=== PATIENT | male | born 1940 | race Caucasian/White ===

== ENCOUNTER 2017-04-21 19:11 | Observation (INO) | payer MEDICARE ==
[2017-04-21] MEDS ORDERED: Nitroglycerin 0.4 MG TAB (25 Tab Bottle) ONE (19:40)
[2017-04-21] MEDS ORDERED: Fentanyl 100 MCG/2 ML VIAL ONE (20:36)
[2017-04-21] MEDS ORDERED: Ondansetron HCl/PF 4 MG/2 ML Vial ONE (20:57)
[2017-04-21] MEDS ORDERED: Succinylcholine Chloride 20 MG/ML 10 ml SYRINGE FS ONE (20:57)
[2017-04-21] MEDS ORDERED: Lidocaine 2% PF 10 ML AMP (For Epidural Use) ONE (20:57)
[2017-04-21] MEDS ORDERED: Propofol 200 MG/20 ML VIAL ONE (20:57)
[2017-04-21] MEDS ORDERED: Ondansetron HCl/PF 4 MG/2 ML Vial IVP PRN (21:58)
[2017-04-21 23:14] VITALS: BMI 34.1
[2017-04-21] MEDS ORDERED: Dextrose 50% Abboject 50 ML SYRINGE IVP PRN (23:14)
[2017-04-21] MEDS ORDERED: Dextrose 5% in Water 1,000 ML IV PRN (23:14)
[2017-04-21] MEDS ORDERED: Insulin Regular 300 UNITS/3 ML VIAL SC PRN (23:14)
--- NOTE | 2017-04-22 01:42 | CON ---
DATE OF CONSULTATION: 04/21/2017 REQUESTING PHYSICIAN: Dr. Zabala. REASON FOR CONSULTATION: Esophageal food impaction. HISTORY OF PRESENT ILLNESS: Curtis Soriano is a 77-year-old man well known to me. He has a prior histo ry of colon cancer, status post resection as well as diabetes. He also has a long distal esophageal stricture and has presented multiple times to the hospital with foreign body impactions over the pa st few years and months. He presented in 07/2014, then again on 03/2016, then again in 01/2017. Ea ch time he has had to have esophageal food disimpaction as well as esophageal dilation. I followed him up in the outpatient setting on 02/15/2017 and dilated his esophageal stricture to 15 mm at that time. We repeated EGDs in 03/2017 and dilated his distal stricture up to 16.5 mm at that time with quite extensive disruption of scar tissue in the esophagus. I had planned to repeat the upper endo scopy to 3-week intervals, but the patient missed this because he underwent a right knee replacement . He has continued his PPI twice daily since that time. He generally tries to chew his food really well. However, for the past few days swallowing has been getting a lot tougher, he felt as if a pi ll lodged in his esophagus this morning. Then, this afternoon about 4 hours ago, he was eating pizz a with pepperoni and sausage and felt as if it lodged in the lower esophagus. He has been unable to swallow his secretions since that time and he has been regurgitating mucus, unable to tolerate any p.o. intake. He has no other complaints. PAST MEDICAL HISTORY: Colon cancer status post resection, diabetes, hyperlipidemia, esophageal stri cture with multiple prior esophageal foreign body presentations, requiring urgent EGDs, and dilation . ALLERGIES: ZITHROMAX. CURRENT MEDICATIONS: Protonix 40 mg b.i.d., pravastatin, glyburide, and metformin. SOCIAL HISTORY: No smoking. Alcohol use is occasional. FAMILY HISTORY: Negative for GI malignancy, but his mother had pancreatic cancer. Grandfather had lung cancer. PHYSICAL EXAMINATION: VITAL SIGNS: Temperature 98.0, pulse 92, blood pressure 124/67, 95% oxygen saturation on room air. GENERAL: Obese 77-year-old man sitting up in the bed comfortably in no distress. SKIN: No jaundice, no rashes were palpable. EYES: No scleral icterus. Extraocular movements intact. ENT: Mucous membranes moist, no oral lesions. LYMPH: No submandibular, supraclavicular lymphadenopathy. THYROID: Nontender to palpation. HEART: Regular rate and rhythm. LUNGS: Clear to auscultation bilaterally. ABDOMEN: Soft and nontender to palpation. EXTREMITIES: No peripheral edema. VESSELS: Radial pulses 2+ bilaterally. NEUROLOGICAL: Cranial nerves II-XII intact bilaterally. No focal deficits. LABORATORY STUDIES: None. ASSESSMENT AND PLAN: 1. Esophageal foreign body, food bolus impaction. 2. Distal esophageal stricture. We will proceed with urgent EGD this evening for food bolus extrac tion and possible esophageal dilation depending on findings. He will need to continue to chew his f ood thoroughly, will likely need serial esophageal dilations in the outpatient setting, get back on track with this. I anticipate he will be able to be discharged home this evening following the proc edure.
--- NOTE | 2017-04-22 03:34 | OP ---
DATE OF PROCEDURE: 04/21/2017 SURGEON: Michele Dave M.D. MANAGER MARKET SURGEON: None. PROCEDURE PERFORMED: Esophagogastroduodenoscopy with foreign body removal and esophageal dilation. INDICATION: 1. Esophageal food bolus impaction. 2. Esophageal stricture. MEDICATIONS: See anesthesia record. FINDINGS: After discussion of the risks, benefits and alternatives of the procedure, informed conse nt was obtained and witnessed. Pre-endoscopic cardiopulmonary examination was satisfactory. Timeou t was performed before sedation was achieved. Sedation was achieved with anesthesia assistance in [facility] endoscopy unit. The patient was endotracheally intubated for airway protection. A Pentax adult upper endoscope was placed into the oropharynx and passed through the cricopharyngeus under direct v isualization. The proximal esophageal mucosa appeared normal. At 30 cm from the incisors, there wa s a single large chunk of meat. This was not tightly impacted at the top of his distal esophageal s tricture, but rather was bouncing around in the esophagus, it was unable to pass beyond his tight st ricture. I was able to completely remove the food bolus with suction through the endoscope. At thi s point, the endoscope was reinserted into the esophagus for further examination. The patient's kno wn distal esophageal stricture is still present. It measures from 30-35 cm in the distal esophagus. The endoscope was actually able to traverse the stricture though this was very tight and examine t he stomach at first part of the small intestine, which again appeared normal. At this point, it was decided to proceed with esophageal dilation as there was very little acute maceration of the esopha george from the patient's food bolus. So we used, through the scope, balloon dilator to serially dilat e the esophagus to 15 mm and then to 16.5 mm. Upon reexamination of the distal esophagus after dila tion, there was good mucosal disruption with moderate improvement in luminal narrowing. The upper e ndoscope was then completely withdrawn and the patient allowed to recover. The patient tolerated e procedure well. There were no immediate post-procedure complications. IMPRESSION: 1. Meat impaction at 30 cm, now removed. 2. Tight distal esophageal stricture from 30-35 cm, now status post serial dilation to 15 cm then 1 6.5 cm, with good mucosal disruption and moderate improvement in luminal narrowing. 3. Otherwise, normal esophagogastroduodenoscopy. RECOMMENDATIONS: 1. Chew food thoroughly. 2. Protonix 40 mg twice daily. 3. We will plan to repeat EGD with dilation in 2-3 weeks.
[2017-04-22 04:35] LABS: #Eosinphils 0.4 thou/uL (0.0-0.7); #Lymphocytes 2.5 thou/uL (1.20-3.40); #Monocytes 0.7 thou/uL (0.11-0.59); #Neutrophils 4.3 thou/uL (1.40-6.50); %Basophils 0.5 % (0.0-1.0); %Eosinophils 4.5 % (0.0-10.0); %Lymphocytes 31.5 % (21.0-51.0); %Monocytes 8.8 % (0.0-10.0); Hematocrit 39.9 % (42.0-52.0); Mean Platelet Volume 6.6 fL (7.4-10.4); Red Blood Cell (RBC) Count 4.27 mill/uL (4.70-6.10); White Blood Cell (WBC) Count 7.9 thou/uL (4.8-10.8)
[2017-04-22 04:48] LABS: ALT (SGPT) 13 U/L (8-55); AST (SGOT) 12 U/L (5-34); Alkaline Phosphatase 85 U/L (40-150); Anion Gap 10 mmol/L (10-20); BUN (Urea Nitrogen) 10 mg/dL (8.4-25.7); Bilirubin, Total 0.4 mg/dL (0.2-1.2); CK (CPK) 166 U/L (30-200); Calc. Creatinine Clearance 136 mL/min (70-130); Calcium 8.7 mg/dL (7.8-10.44); Carbon Dioxide 28 mmol/L (23-31); Chloride 102 mmol/L (98-107); Estimated GFR-MDRD Greater than 90; Globulin 3.1 g/dL (2.4-3.5); Protein, Total 6.3 g/dL (5.8-8.1)
[2017-04-22 04:51] LABS: Troponin I 0.034 ng/mL (< 0.028)
--- NOTE | 2017-04-22 10:40 | HP ---
DATE OF ADMISSION: 04/21/2017 PRIMARY CARE PHYSICIAN: Dr. Benja Velázquez. CHIEF COMPLAINT: New onset atrial fibrillation, status post EGD with dilation. HISTORY OF PRESENT ILLNESS: This is a 77-year-old male with past medical history of chron ic esophageal strictures and multiple dilations, type 2 diabetes, osteoarthritis of both knees, mixe d hyperlipidemia, who was getting a procedure here at [facility] with Dr. Michele Dave to add ress an impaction in the esophagus. This was apparently chronic for him and was having EGD with dil ation of the esophagus. The procedure went well; however, after the procedure, his heart rate went to 110 to 140s and an EKG showed atrial fibrillation. As far as the patient knows, this is the firs t time he has had abnormal rhythm like this. His heart rate has been maintained below 110. He is c urrently not on a beta gian. He does take aspirin. ALLERGIES: AZITHROMYCIN. MEDICATIONS: 1. Metformin 500 mg 2 tabs p.o. b.i.d. 2. Tamsulosin 0.4 mg p.o. daily. 3. Pravastatin 40 mg p.o. daily. 4. Aspirin 81 mg p.o. daily. 5. Glipizide 10 mg p.o. b.i.d. PAST MEDICAL HISTORY: As above. PAST SURGICAL HISTORY: 1. Recent right total knee replacement. 2. Right-sided colectomy. 3. Hernia repair. 4. Appendectomy. SOCIAL HISTORY: The patient is a former smoker. Denies alcohol and illicit drugs. REVIEW OF SYSTEMS: General: Denies fever, weight change, appetite change. HEENT: Denies headache , vision changes, sore throat. Reports dysphagia is better, status post esophageal dilation. Skin: He does have some erythema along the right leg from the knee down, status post right knee replacem ent. Cardiovascular: Denies chest pain or palpitations. Respiratory: Denies shortness of breath or cough. Gastrointestinal: Denies nausea, vomiting, diarrhea, abdominal pain. Genitourinary: De nies dysuria or hematuria. Musculoskeletal: Normal range of motion except for right knee, mild rig ht knee swelling. Neurologic: Denies syncope and dizziness. PHYSICAL EXAMINATION: VITAL SIGNS: Temperature 98.1, pulse 66, respirations 16, oxygen saturation 97% on room air, blood pressure 155/70. GENERAL: Alert and oriented x3, in no acute distress. SKIN: Mild erythema of the right leg from the knee down. HEENT: Normocephalic. Pupils equally round and reactive to light. Extraocular muscles intact. M oist mucous membranes with nonerythematous throat. HEART: Currently regular rate and rhythm. No murmurs. LUNGS: Clear to auscultation bilaterally. No wheezes or rales. ABDOMEN: Soft, nontender, nondistended. Bowel sounds heard throughout. MUSCULOSKELETAL: Decreased range of motion with flexion of the right knee. NEUROLOGIC: Cranial nerves II-XII are intact. Sensation within normal limits. LABORATORY AND X-RAY FINDINGS: White blood cell count 7.9, hemoglobin 12.6, hematocrit 39.9, MCV 93 .4. Sodium 136, potassium 4.4, chloride 102, carbon dioxide 28, BUN 10, creatinine 0.82, glucose 173, ca lcium 8.7, total bilirubin 0.4, AST 12, ALT 13, alkaline phosphatase 85. Creatinine kinase 166, CK- MB 5.4, troponin 0.034, total protein 6.3, and albumin 3.2. EKG last night showed a rate of 106 and an irregularly irregular rhythm, no ST-T wave changes. New EKG pending. Telemetry shows now in si nus rhythm at the rate of 80s. ASSESSMENT AND PLAN: 1. New onset atrial fibrillation. He converted to sinus rhythm earlier this morning. He denies ot her symptoms of chest pain or palpitations or skipped beats. We will consult Cardiology for evaluat ion and recommendations. Beta gian has not been started, but probably should be started prior to discharge. 2. Esophageal strictures, status post EGD with dilation. He is asymptomatic from this standpoint a nd can go ahead and have a soft diet. 3. Type 2 diabetes. Glucose measurements have been mildly high. We will restart his home medicati ons this morning. DISPOSITION: The patient states he feels well and would like to go home. I advised the patient it will be important to have atrial fibrillation worked up and evaluated by Cardiology. He reluctantly agreed and we will wait for recommendations from Cardiology.
[2017-04-22 11:11] VITALS: BP 135/61; TEMP 98.2
[2017-04-22] MEDS ORDERED: Metoprolol Tartrate 25 MG TAB PO SCH ×2 (13:45→21:00)
--- NOTE | 2017-04-22 14:44 | CON ---
DATE OF CONSULTATION: 04/22/2017 DATE OF ADMISSION: 04/21/2017 INDICATION FOR CONSULTATION: A 77-year-old patient with history of new onset of atrial fibrillation . HISTORY OF PRESENT ILLNESS: This is a 77-year-old gentleman who has a history of having some atrial fibrillation many years ago back in the , was treated for approximately 6 months to a year wit h medication and this was stopped. He has had no further problems. He has had multiple problems re cently with esophageal problems and dilatations. He has type 2 diabetes. He has a history of hyper lipidemia. He also recently had a knee replacement and has been doing relatively well except he has been under increased stress due to recent surgeries. He came to the emergency room yesterday after having food impaction in the esophagus and required esophageal dilatation. After that, the patient went into atrial fibrillation with heart rates up to 140s. EKG showed atrial fibrillation, but no acute ST segment changes to indicate ischemia; however, he does have multiple risk factors of schwartz ry artery disease. He was seen by me in the office back in 2014, at which time he had a negative st ress test for ischemia. He did have some septal hypokinesis, but no further procedures performed at that time as he was awaiting colon surgery for colon cancer. He also had I believe he had EKGs in the past which showed no evidence of atrial fibrillation. He has had occasional EKGs which showed Q -waves in the inferior leads, but these also seemed to resolve. In the office, EKG did not show thi s and then recently when he had another EKG here after he was in sinus rhythm, also no evidence of a ny previous myocardial infarctions. At this time, he is stable. He was to go home due to his multi ple risk factors for coronary artery disease. It would be best for him to continue with other evalu ation in the near future, and I would suggest this can be done as an outpatient since the patient wa s to go home when appears to be stable. PAST MEDICAL HISTORY: Significant for the remote history of atrial fibrillation in the past. He llanos s had a recent right total knee replacement, multiple esophageal dilatations. He has had a right he micolectomy for colon cancer. He has had an appendectomy and hernia repair. SOCIAL HISTORY: He has no significant alcohol use. He did smoke, but stopped about 30-40 years ago . ALLERGIES: AZITHROMYCIN. MEDICATIONS: Include aspirin 81 mg a day, atorvastatin 10 mg a day. He is on insulin p.r.n. He llanos s been placed on metoprolol 12.5 mg b.i.d., this was most recently started by me since I have seen t he patient, he is also on Protonix, Flomax 0.4 mg q.p.m., and Glucotrol 10 mg b.i.d. as well as metf ormin 1000 mg b.i.d. REVIEW OF SYSTEMS: Twelve point review of systems is unremarkable except what was noted in the hist ory of present illness. He did have some mild lightheadedness with the atrial fibrillation and the RVR, but otherwise has been doing quite well. PHYSICAL EXAMINATION: GENERAL: Reveals a well-developed, well-nourished, obese gentleman who is in no acute distress at t his time. VITAL SIGNS: Blood pressure 135/61, heart rate 77 and regular. He is afebrile, respiratory rate 16 . HEENT: Shows head to be normocephalic, atraumatic. Carotid pulses are present. There were no brui ts. No JVD. The thyroid is not enlarged. Oral mucosa is pink and moist. CHEST: Clear. There is no evidence of rales, rhonchi or wheezing. CARDIOVASCULAR: At this time reveals regular rate and rhythm with normal S1, S2. I cannot hear any significant S3, S4, nor there any significant murmurs, heaves, thrills, bruits or rubs. ABDOMEN: Shows obesity with positive bowel sounds. No organomegaly or masses noted. EXTREMITIES: Femoral pulses are present. Pedal pulses are present. He has evidence of a recent nam rgical incision on the right knee. SKIN: Warm and dry. He does have some evidence of erythema in the right lower extremity, this has been followed previously and appears to have improved according to the patient. LABORATORY DATA: Shows hemoglobin of 12.6, potassium 4.4, creatinine 0.82. Troponin 0.034, we will ask him to repeat this, but otherwise, he seems to be doing quite well. IMPRESSION: 1. New onset of atrial fibrillation which converted back to sinus rhythm without medications this m orning. I would suggest he would be placed on medications in the form of beta blockers and metoprol ol 12.5 mg b.i.d. Will need to follow his heart rate and ensure he does not become bradycardic. I will suggest that he follow up in the office for an echocardiogram as well as an outpatient stress t est since he wants to go home urgently today and seems to be relatively stable at this time. 2. Multiple esophageal dilatations to the strictures. This will be detail with GI physicians. 3. Type 2 diabetes. This appears to be relatively good control at this time. He will continue his medications; however, earlier blood sugar was anywhere between 173-225 and he will need to see his primary care doctor for further treatment and evaluation followup of his atrial fibrillation. 4. Hypercholesterolemia, he will continue on his medications. From a cardiac standpoint at this ti me, he appears to be stable. I would suggest further evaluation with stress testing and echocardiog monika which can be done as an outpatient. I will start him on beta-blockers and see whether or not he tolerates this and we will also check repeat cardiac enzymes to ensure that the enzymes are trendin g downward. It is indeterminate at this time of 0.034, most likely this is due to atrial fibrillati on with rapid ventricular response.
[2017-04-22 14:57] LABS: Troponin I 0.028 ng/mL (< 0.028)
[2017-04-22] MEDS ORDERED: Tamsulosin HCl 0.4 MG CAP PO SCH (21:00)
[2017-04-22] MEDS ORDERED: Atorvastatin Calcium 10 MG TAB PO SCH (21:00)
--- NOTE | 2017-04-23 17:43 | EKG ---
Test Reason : ROUTINE Blood Pressure : / mmHG Vent. Rate : 068 BPM Atrial Rate : 068 BPM P-R Int : 158 ms QRS Dur : 094 ms QT Int : 396 ms P-R-T Axes : 035 -06 019 degrees QTc Int : 421 ms Poor data quality, interpretation may be adversely affected Normal sinus rhythm Normal ECG Confirmed by LONA MANLEY ([id number]) on 04/23/2017 5:43:09 PM Referred By: PETER Confirmed By:LONA MANLEY
--- NOTE | 2017-04-23 17:44 | EKG ---
Test Reason : Blood Pressure : / mmHG Vent. Rate : 106 BPM Atrial Rate : 104 BPM P-R Int : 000 ms QRS Dur : 092 ms QT Int : 290 ms P-R-T Axes : 000 033 -17 degrees QTc Int : 385 ms Atrial fibrillation with rapid ventricular response Inferior infarct (cited on or before 16-AUG-2014) Abnormal ECG Confirmed by LONA MANLEY ([id number]) on 04/23/2017 5:43:42 PM Referred By: PACU Confirmed By:LONA MANLEY
--- NOTE | 2017-04-23 20:06 | DIS ---
DATE OF ADMISSION: 04/21/2017 DATE OF DISCHARGE: 04/22/2017 DISCHARGE DIAGNOSES: 1. New onset atrial fibrillation, converted to sinus rhythm without medication. 2. Chronic esophageal strictures. 3. Type 2 diabetes. 4. Hypercholesterolemia. DISCHARGE MEDICATIONS: 1. Metoprolol tartrate 12.5 mg b.i.d. 2. Aspirin 81 mg p.o. q. day. 3. Pantoprazole 40 mg p.o. b.i.d. 4. Tamsulosin 0.4 mg p.o. at bedtime. 5. Glipizide 10 mg p.o. b.i.d. 6. Metformin 1000 mg p.o. b.i.d. CONSULTS: Dr. Larsen. PROCEDURES: None. HOSPITAL COURSE: This is a 77-year-old male with past medical history of chronic esophage al strictures and multiple dilations, type 2 diabetes, hyperlipidemia, osteoarthritis of the knees, who presented to [facility] for treatment by Dr. Dave for impaction in the esophagus. He underwent an EGD with dilation of the esophagus, which went well. However, after the procedure, his heart rat e increased up to the 140s and EKG showed atrial fibrillation. The patient states this may have happened to him many years ago but that resolved. He is not curren tly on a beta gian. Dr. Larsen was consulted, who evaluated the patient. The patient is stable an d she recommended starting beta gian along with an in-office echo and stress test. The patient d eferred getting these done in the hospital because he wanted to go home urgently. As for his type 2 diabetes, this is under control. As for his cholesterol, we will continue his niyah e medications. DISPOSITION: Stable. DISCHARGE INSTRUCTIONS: 1. Discharged to home. 2. Diet: Heart healthy. 3. Activity: Ad shireen. 4. Followup: Follow up with Cardiology in the next 2 weeks. Follow up with primary care physician in the next 1-2 weeks.
== END 2017-04-22 15:48 | disposition home or self-care (01) ==
LOC: ERS 19:11 → SDC 21:18 → 2SW 22:41
PROVIDERS: ADMIT Family Medicine; ATTEND Family Medicine
PROC: 0DC58ZZ Extirpation of Matter from Esophagus, Via Natural or Artificial Opening Endoscopic (ICD-10-PCS; principal; 2017-04-21)
PROC: 0D758ZZ Dilation of Esophagus, Via Natural or Artificial Opening Endoscopic (ICD-10-PCS; 2017-04-21)
DX: T18.128A Food in esophagus causing other injury, initial encounter (principal); K22.2 Esophageal obstruction; I48.91 Unspecified atrial fibrillation; E11.9 Type 2 diabetes mellitus without complications; M17.0 Bilateral primary osteoarthritis of knee; E78.2 Mixed hyperlipidemia; Z88.1 Allergy status to other antibiotic agents; Z79.84 Long term (current) use of oral hypoglycemic drugs; Z79.82 Long term (current) use of aspirin; Z79.899 Other long term (current) drug therapy; Z90.49 Acquired absence of other specified parts of digestive tract; Z96.651 Presence of right artificial knee joint; Z98.890 Other specified postprocedural states; Z87.891 Personal history of nicotine dependence
CPT/HCPCS: 43247; 43249; 80053; 82550; 82553; 82962; 84484 ×2; 85025; 93005 ×2; 96372; 99285; G0378; J1610; 36415; 36416; 93010; J2001; J2405; J2704; J3010

== ENCOUNTER 2019-08-08 18:08 | Inpatient (IN) | payer MEDICARE ==
[2019-08-08 18:46] LABS: #Basophils 0.1 thou/uL (0.0-0.2); #Eosinphils 0.3 thou/uL (0.0-0.7); #Lymphocytes 2.3 thou/uL (1.20-3.40); #Monocytes 0.4 thou/uL (0.11-0.59); #Neutrophils 4.9 thou/uL (1.40-6.50); %Basophils 0.9 % (0.0-1.0); %Eosinophils 3.5 % (0.0-10.0); %Lymphocytes 28.9 % (21.0-51.0); %Monocytes 5.5 % (0.0-10.0); %Neutrophils 61.2 % (42.0-75.0); Hemoglobin 16.9 g/dL (14.0-18.0); Mean Corpuscular HGB CONC 32.3 g/dL (32.0-36.0); Mean Corpuscular Hemoglobin 29.8 pg (27.0-31.0); Mean Corpuscular Volume 92.3 fL (78.0-98.0); Mean Platelet Volume 7.9 fL (7.4-10.4); Platelet Count 222 thou/uL (130-400); RBC Distribution Width 12.6 % (11.5-14.5); Red Blood Cell (RBC) Count 5.67 mill/uL (4.70-6.10)
[2019-08-08 18:54] LABS: PTT 26.7 SEC (22.9-36.1); Prothrombin Time 13.1 SEC (12.0-14.7)
--- NOTE | 2019-08-08 18:56 | CT ---
Exam: Head CT without contrast HISTORY: Confusion. Altered mental status. COMPARISON: none FINDINGS: Hemorrhage: No intraparenchymal hemorrhage or extra-axial hematoma. Brain parenchyma: Cortical flores-white matter differentiation is preserved. No mass effect or midline shift. Basilar cisterns are patent.Age-appropriate atrophy. Minimal hypodensity in the left and right frontal subcortical white matter, likely representing chronic small vessel ischemic change Ventricular system: Ventricles and sulci are patent and symmetric. Calvarium: Intact. Sinuses and mastoid air cells: Adequate aeration. IMPRESSION: No acute intracranial process.
[2019-08-08] MEDS ORDERED: Diltiazem 125 MG/25 ML ONE (18:59)
[2019-08-08 19:04] LABS: ALT (SGPT) 26 U/L (8-55); AST (SGOT) 23 U/L (5-34); Acetaminophen Less than 6.0 mcg/mL (10.0-30.0); Albumin 4.3 g/dL (3.4-4.8); Alcohol Less than 10 mg/dL (Less than 10); Alkaline Phosphatase 71 U/L (40-110); Anion Gap 13 mmol/L (10-20); BUN (Urea Nitrogen) 11 mg/dL (8.4-25.7); Bilirubin, Total 0.5 mg/dL (0.2-1.2); Calc. Creatinine Clearance 0 mL/min (70-130); Calcium 9.6 mg/dL (7.8-10.44); Carbon Dioxide 29 mmol/L (23-31); Chloride 98 mmol/L (98-107); Estimated GFR-MDRD 59; Globulin 3.3 g/dL (2.4-3.5); Glucose 374 mg/dL (83-110); Magnesium 1.9 mg/dL (1.6-2.6); Potassium 4.2 mmol/L (3.5-5.1); Protein, Total 7.6 g/dL (5.8-8.1); Salicylate Less than 8.0 mg/dL (15.0-30.0); Sodium 136 mmol/L (136-145)
[2019-08-08 19:32] LABS: Base Excess-Venous 0.2 mmol/L (-2.0 to 3.0); Bicarbonate (HCO3v) 26.2 mmol/L (22.0-28.0); CO2 Tension (PvCO2) 45.9 mmHg (40.0-50.0); Calcium, Ionized 1.13 mmol/L (See Comments:); Chloride 101 mmol/L (98-107); Hemoglobin - Calc 15.4 g/dL (14.0-18.0); Potassium 4.3 mmol/L (3.5-5.1); Sodium 138 mmol/L (138-145); T. Carbon Dioxide 27.6 mmol/L (22.0-28.0); vO2 Saturation-calc 70.3 % (60.0-85.0)
[2019-08-08 19:44] LABS: Bacteria/HPF None Seen HPF (None Seen); Bilirubin Negative (Negative); Blood, Urine 1+ (Negative); Clarity Clear (Clear); Glucose, Urine (Dipstick) Greater than 1000 mg/dL (Negative); Leukocyte Negative Leu/uL (Negative); Nitrite Negative (Negative); Protein, Urine (Dipstick) Negative (Neg-Trace); Squamous Epithelial None Seen HPF (0-3); Urobilinogen Normal mg/dL (Less than 2); WBC/HPF 0-3 HPF (0-3)
--- NOTE | 2019-08-08 20:33 | RAD ---
Exam: Chest one view HISTORY:Altered mental status. Comparison: 04/23/2011 FINDINGS: Cardiac silhouette:Cardiomegaly. Aorta: Atherosclerosis. Pulmonary vessels: Normal Costophrenic angles: Clear LUNGS: No masses or consolidation. Pneumothorax: None Osseous abnormalities: Old right rib fractures. IMPRESSION: Cardiomegaly, without evidence of heart failure. Atherosclerosis.
[2019-08-08] MEDS ORDERED: Aspirin Chewable 81 MG TAB ONE (22:12)
[2019-08-08 22:27] VITALS: BMI 34.1
[2019-08-08 22:28] LABS: Lactic Acid 1.9 mmol/L (0.5-2.2)
[2019-08-08 22:43] LABS: Troponin I 0.028 ng/mL (< 0.028)
[2019-08-09 01:25] LABS: Troponin I 0.017 ng/mL (< 0.028)
[2019-08-09] MEDS ORDERED: Loperamide HCl 2 MG CAP PO PRN (07:16)
[2019-08-09] MEDS ORDERED: Bisacodyl 5 MG TAB PO PRN (07:16)
[2019-08-09] MEDS ORDERED: Ondansetron ODT 4 MG TAB PO PRN (07:16)
[2019-08-09] MEDS ORDERED: Calcium Carbonate 500 MG ChewTAB PO PRN (07:16)
[2019-08-09] MEDS ORDERED: HYDROcodone/Acetaminophen 5/325 mg Tablet PO PRN (07:16)
[2019-08-09] MEDS ORDERED: Ondansetron PF 4 MG/2 ML Vial IVP PRN (07:16)
[2019-08-09] MEDS ORDERED: Acetaminophen 325 MG TAB PO PRN (07:16)
[2019-08-09] MEDS ORDERED: Melatonin 3 MG TAB PO PRN (07:19)
[2019-08-09] MEDS ORDERED: Labetalol HCl 100 MG/20 ML VIAL SLOW IVP PRN (07:19)
[2019-08-09] MEDS ORDERED: diphenhydrAMINE 25 MG CAP PO PRN (07:19)
[2019-08-09] MEDS ORDERED: Docusate 100 MG CAP PO PRN (07:19)
[2019-08-09] MEDS ORDERED: Benzonatate 100 MG CAP PO PRN (07:19)
[2019-08-09] MEDS ORDERED: Dextrose 5% in Water 1,000 ML IV PRN (07:22)
[2019-08-09] MEDS ORDERED: HumaLOG 300 UNITS/3 ML VIAL SC PRN (07:22)
[2019-08-09] MEDS ORDERED: Dextrose 50% Abboject 50 ML SYRINGE SLOW IVP PRN (07:22)
[2019-08-09] MEDS ORDERED: Aspirin Chewable 81 MG TAB PO SCH ×2 (09:00→13:55)
--- NOTE | 2019-08-09 09:11 | ULT ---
US Carotid Doppler STANDARD History: CVA symptoms Comparison: None. Findings: Real-time grayscale, color, and spectral analysis of the extracranial carotid and vertebral arteries was performed. No elevated peak systolic velocities within the internal carotid arteries. Antegrade flow both verteb ral arteries. Impression: No hemodynamically significant stenosis.
[2019-08-09] MEDS: Lisinopril 5 MG TAB PO SCH (09:28)
[2019-08-09] MEDS: Apixaban 5 MG TAB PO SCH ×2 (09:28→21:03)
--- NOTE | 2019-08-09 09:54 | MRI ---
MRI BRAIN NONCONTRAST: DATE: 08/09/2019. HISTORY: A 79-year-old male with CVA. COMPARISON: No prior brain MRIs. FINDINGS: There are several foci of cerebral cortical restricted diffusion, all associated with moderately T2 h yperintense signal: Two punctate foci at left superior frontal gyrus. Approximately 3.5 x 9.5 cm lesion in upper left frontal region, including involvement of posterior as pect of middle frontal gyrus. Associated petechial hemorrhage. A 3.5 x 1.5 cm lesion in left posterior parietal lobe, also with petechial hemorrhage. A 3 x 1 cm lesion in left occipital region (no petechial hemorrhage). Very thin, short linear band at a right medial occipital cortex. Flow voids are grossly maintained in the major arteries of [place]. No obstructive hydrocephalus, mass effect, midline shift, or extraaxial fluid collection. Mild to moderate chronic ischemic white matter changes of the cerebrum. IMPRESSION: 1. Several foci of mostly small acute infarctions scattered in the left cerebral hemisphere. These are mostly in the watershed zones, between the left middle cerebral artery and left anterior cerebral artery territories, and between left middle cerebral artery and left posterior cerebral artery megha tories (although some appear to be in the left anterior cerebral artery and left middle cerebral david ry territories themselves). 2. A tiny such acute infarction in the contralateral right posterior cerebral artery territory. 3. Two of the acute infarctions on the left have petechial hemorrhage (which would not be visible on CT or on other MRI sequences besides gradient echo and SWI). KACY Pacheco POS: CET
[2019-08-09] MEDS: HumaLOG 300 UNITS/3 ML VIAL SC PRN ×2 (11:31→16:41)
--- NOTE | 2019-08-09 14:00 | PDOC.HHP ---
Hospitalist HPI - History of Present Illness CVA symptoms History of Present Illness: Very pleasant 79-year-old gentleman with past medical history of atrial fibrillation on Eliquis, diabetes mellitus, hypertension, hyperlipidemia, gastroesophageal reflux disease, and BPH who presents with stroke symptoms. Patient presented to the emergency department with altered mental status/ confusion, difficulty talking, and lack of coordination. Upon arrival to the emergency department his symptoms did improve. This a.m. when I evaluated the patient he is alert and oriented times three and has fair insight to clinical condition. Patient is fluent in speech, though he does have some slowing in cognition, he is able to answer all of my questions appropriately. Patient has no focal neurologic deficits and denies any weakness or facial drooping or asymmetries. Patient has no complaints at this time and no acute issues. A MRI of the brain was performed this a.m. and found to be positive for acute cerebrovascular accident. Neurology consultation requested for further recommendations. Hospitalist ROS - Review of Systems All other systems reviewed; all pertinent +/- noted in HPI/Subj - Medication Medications: Active Medications Generic Name Dose Route Start Last Admin Trade Name Freq PRN Reason Stop Dose Admin Hydrocodone Bitart/Acetaminophen 1 tab 08/09/19 07:16 08/09/19 09:28 [place] 5/325 PO 1 tab Q4H PRN Administration Moderate to Severe Pain (6-10) Apixaban 5 mg 08/09/19 09:00 08/09/19 09:28 Eliquis PO 5 mg BID NIDHI Administration Insulin Human Lispro 0 units 08/09/19 07:22 08/09/19 11:31 Humalog SC 6 unit .MODERATE SLIDING SC PRN Administration Moderate Correctional Scale Lisinopril 5 mg 08/09/19 09:00 08/09/19 09:28 Zestril PO 5 mg DAILY NIDHI Administration Pantoprazole Sodium 40 mg 08/09/19 09:00 08/09/19 09:28 Protonix PO 40 mg BID NIDHI Administration Sodium Chloride 10 ml 08/09/19 09:00 08/09/19 09:29 Flush - Normal Saline IVF 10 ml Q12HR NIDHI Administration Hospitalist History - Past Medical History Source: patient, old records Cardiac: reports: AFIB, CAD, HTN, Hyperlipidemia Endocrine: reports: Diabetes - Family History Family History: reports: hypertension - Social History Smoking Status: Unknown if ever smoked Alcohol: reports: Rare Drugs: reports: none Living Situation: Alone Domestic Violence: Negative Activity level: independent ambulation - Exam General Appearance: NAD, awake alert Eye: PERRL, anicteric sclera ENT: normocephalic atraumatic, no oropharyngeal lesions, moist mucosa Neck: supple, symmetric, no lymphadenopathy Heart: no murmur, no gallops, no rubs, irregular Respiratory: CTAB, no wheezes, no rales, no ronchi, normal chest expansion, no tachypnea Gastrointestinal: soft, non-tender, non-distended, no guarding, no rigidity Extremities: no edema Skin: no lesions, no rashes Neurological: cranial nerve grossly intact, normal sensation to touch, no focal deficits Musculoskeletal: generalized weakness Psychiatric: normal affect, normal behavior, A&O x 3 Hospitalist Results - Labs Result Diagrams: 08/08/19 18:30 08/08/19 18:30 Lab results: WBC 8.0 thou/uL (4.8-10.8) 08/08/19 18:30 Hgb 16.9 g/dL (14.0-18.0) 08/08/19 18:30 Hct 52.3 % (42.0-52.0) H 08/08/19 18:30 MCV 92.3 fL (78.0-98.0) 08/08/19 18:30 Plt Count 222 thou/uL (130-400) 08/08/19 18:30 Neutrophils % 61.2 % (42.0-75.0) 08/08/19 18:30 VBG pCO2 45.9 mmHg (40.0-50.0) 08/08/19 19:31 VBG pO2 38.4 mmHg (35.0-45.0) 08/08/19 19:31 Sodium 136 mmol/L (136-145) 08/08/19 18:30 Potassium 4.2 mmol/L (3.5-5.1) 08/08/19 18:30 Chloride 98 mmol/L (98-107) 08/08/19 18:30 Carbon Dioxide 29 mmol/L (23-31) 08/08/19 18:30 BUN 11 mg/dL (8.4-25.7) 08/08/19 18:30 Creatinine 1.19 mg/dL (0.7-1.3) 08/08/19 18:30 Glucose 374 mg/dL (83-110) H 08/08/19 18:30 Lactic Acid 1.9 mmol/L (0.5-2.2) 08/08/19 22:06 Calcium 9.6 mg/dL (7.8-10.44) 08/08/19 18:30 Total Bilirubin 0.5 mg/dL (0.2-1.2) 08/08/19 18:30 AST 23 U/L (5-34) 08/08/19 18:30 ALT 26 U/L (8-55) 08/08/19 18:30 Alkaline Phosphatase 71 U/L (40-110) 08/08/19 18:30 Ammonia 26 umol/L (18-72) 08/08/19 19:11 Troponin I 0.017 ng/mL (< 0.028) 08/09/19 00:53 Serum Total Protein 7.6 g/dL (5.8-8.1) 08/08/19 18:30 Albumin 4.3 g/dL (3.4-4.8) 08/08/19 18:30 Urine Ketones Trace mg/dL (Negative) A 08/08/19 19:30 Urine Blood 1+ (Negative) A 08/08/19 19:30 Urine Nitrite Negative (Negative) 08/08/19 19:30 Ur Leukocyte Esterase Negative Brent/uL (Negative) 08/08/19 19:30 Urine RBC 4-6 HPF (0-3) A 08/08/19 19:30 Urine WBC 0-3 HPF (0-3) 08/08/19 19:30 Ur Squamous Epith Cells None Seen HPF (0-3) 08/08/19 19:30 Urine Bacteria None Seen HPF (None Seen) 08/08/19 19:30 - Radiology Interpretation MRI - head Status: image reviewed by me CT scan - head Status: image reviewed by me Chest x-ray Status: image reviewed by me Hospitalist H&P A/P - Problem (1) Acute CVA (cerebrovascular accident) Code(s): I63.9 - CEREBRAL INFARCTION, UNSPECIFIED Status: Acute (2) Atrial fibrillation Code(s): I48.91 - UNSPECIFIED ATRIAL FIBRILLATION Status: Acute (3) DM (diabetes mellitus) Code(s): E11.9 - TYPE 2 DIABETES MELLITUS WITHOUT COMPLICATIONS Status: Acute (4) HTN (hypertension) Code(s): I10 - ESSENTIAL (PRIMARY) HYPERTENSION Status: Acute (5) HLD (hyperlipidemia) Code(s): E78.5 - HYPERLIPIDEMIA, UNSPECIFIED Status: Acute (6) GERD (gastroesophageal reflux disease) Code(s): K21.9 - GASTRO-ESOPHAGEAL REFLUX DISEASE WITHOUT ESOPHAGITIS Status: Acute (7) Altered mental status Code(s): R41.82 - ALTERED MENTAL STATUS, UNSPECIFIED Status: Acute (8) Dysarthria Code(s): R47.1 - DYSARTHRIA AND ANARTHRIA Status: Acute - Plan Plan: Plan: admit to medical unit with telemetry - stroke unit neurology consultation, recommendations appreciated MRI of the brain noted for acute CVA Echo pending US carotid- no hemodynamically significant stenosis stroke regimen: -Eliquis for atrial fibrillation -full dose aspirin -high-dose statin -EDUIN inhibitor blood pressure control short acting insulin for glucose control hold other oral diabetes medications continue other home medications as able physical therapy evaluation and treatment Occupational Therapy evaluation treatment speech therapy evaluation treatment G.I. prophylaxis DVT prophylaxis on full dose Eliquis
[2019-08-09] MEDS ORDERED: Atorvastatin Calcium 10 MG TAB PO SCH (21:00)
[2019-08-09] MEDS ORDERED: FLU VACC TS2019-20(65YR UP)/PF 180 MCG/0.5 ML SYRINGE IM ONE (21:00)
[2019-08-09] MEDS ORDERED: Pravastatin Sodium 40 MG TAB PO SCH (21:00)
[2019-08-09] MEDS ORDERED: Prevnar 13-Val Conj/PF 0.5 ML SYRINGE IM ONE (21:00)
[2019-08-09] MEDS: Tamsulosin HCl 0.4 MG CAP PO SCH (21:03)
[2019-08-09] MEDS: Atorvastatin Calcium 40 MG TAB PO SCH (21:03)
[2019-08-10] MEDS: HumaLOG 300 UNITS/3 ML VIAL SC PRN ×3 (08:12→18:10)
[2019-08-10] MEDS ORDERED: Aspirin 325 MG TAB PO SCH (09:00)
[2019-08-10] MEDS: Lisinopril 5 MG TAB PO SCH (09:49)
[2019-08-10] MEDS: Apixaban 5 MG TAB PO SCH ×2 (09:49→22:19)
[2019-08-10] MEDS ORDERED: Aspirin Chewable 81 MG TAB PO SCH (10:00)
--- NOTE | 2019-08-10 10:07 | CON ---
DATE OF TELEMEDICINE CONSULTATION: 08/10/2019 CHIEF COMPLAINT: Acute stroke. HISTORY OF PRESENT ILLNESS: The patient was able to give his medical history, but we also reviewed the chart. Per chart review, the patient was brought in with altered mental status, confusion, difficulty with speech, lack of coordination, and upon arrival to the ER, his symptoms improved and he was back to baseline. The patient has preexisting left footdrop which he revealed on our exam and that has been present for 1 year due to back problems. The patient feels well this morning and he reports he had some left-sided weakness yesterday which has resolved. He never had an PR or a CVA in the past. He has had atrial fibrillation for a number of years and is on Eliquis at home. There was aspirin listed in the chart, but the patient reported he does not take it at home. PREVIOUS MEDICAL HISTORY: Positive for atrial fibrillation, hypertension, diabetes. The patient denied having hypertension. He also has hyperlipidemia and previous left foot drop and colon cancer in the past, which is treated. PREVIOUS SURGICAL HISTORY: Colon surgery for cancer, appendicitis repair, and right knee surgery. FAMILY HISTORY: His sister is 59. She has thyroid problems. His mother in her 80s. She had heart problems nonspecific, which one. His father was in his 80s when he passed. He was an ex-smoker and had lung cancer. The patient has a daughter who is 52 and helps him. SOCIAL HISTORY: He is a nonsmoker. He drinks one to two drinks of alcohol per month. 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 He lives alone and daughter helps. REVIEW OF SYSTEMS: PULMONARY: Negative for shortness of breath or cough. GI: Negative for nausea, vomiting, or diarrhea. HEMATOLOGIC: Negative for bleeding diathesis or anemia. ENDOCRINE: Positive for diabetes. NEUROLOGIC: Positive for acute altered mental status with left-sided weakness, which quickly resolved. CARDIAC: Positive for atrial fibrillation, but negative for any chest pain. DERMATOLOGIC: Negative for any rash. PHYSICAL EXAMINATION: GENERAL APPEARANCE: Well-built, well-nourished man, who has erythema of his left leg in the anterior aspect and he also has some changes consistent with venous stasis. VITAL SIGNS: Blood pressure 138/65, temperature 97.9, pulse 83, respiratory rate is 16. CHEST: Clear vesicular breathing. CARDIOVASCULAR: S1 and S2 heard. No murmurs. ABDOMEN: Soft and nontender. No organomegaly noted. NEUROLOGICAL: Higher intellectual functions normal. Speech normal. Orientation to time, place, and person and appropriate conversation. Cranial nerves 2 through 12; normal extraocular movements. Pupils are 2 mm, reactive to light, and sensation of the face is normal bilaterally. No facial asymmetry noted. Normal hearing to finger rub bilaterally. Tongue midline. No atrophy noted. Normal elevation of palate. Motor examination; bulk normal, tone normal. Strength 5/5 in upper and lower extremities. Muscle groups tested are iliopsoas, hamstrings, quadriceps, ankle dorsiflexion, plantar flexion, deltoid, biceps, triceps, wrist extension and flexion, finger extension and flexion. Of note, he had weakness of the left ankle dorsiflexion at 3/5 and he stated this was old. Deep tendon reflexes 2+ throughout in upper extremities, absent in lower extremities. Sensory examination normal to touch bilaterally, and cerebellar normal [id number] and [id number]. IMPRESSION: The patient is a 79-year-old man, who comes in with sudden onset of altered mental status and left-sided weakness. Risk factors for stroke include diabetes, hypertension, and atrial fibrillation. His workup revealed small CVAs mostly in the left side of the brain. His current examination is normal. He is not on aspirin at home. At this time, I do think he will need anti-platelet agent along with anticoagulation for stroke prophylaxis. RECOMMENDATIONS: 1. Add aspirin 81 mg per day along with Eliquis. 2. Please obtain CT angiogram of the head and neck, which is already ordered. 3. Please complete cardiac workup including echocardiogram. I will follow up on the CT angio report. LABORATORY WORKUP: White count 8.0, hemoglobin 16.9, hematocrit 52.3, platelet count 222. Chemistries; sodium 138, potassium 4.3, chloride 101, BUN is 11, creatinine 1.19, glucose 374, and bicarb 29, and the MRI report was reviewed. MRI of the brain showed several foci of mostly small acute infarction scattered in the left cerebral hemisphere. These are mostly in the watershed zones between the left MCA and left GEETA territories and between left MCA and left ORIGINATION SPECIALIST territories, although, some appeared to be in the left anterior cerebral artery and left MCA territory stem cells and a tiny acute infarct in the contralateral right ORIGINATION SPECIALIST territory. Two of the acute infarctions on the left have petechial hemorrhage, which would not be visible on CT or on other MRI sequences besides gradient echo. Job ID: [id number] [facility] HOSPITALBalta
[2019-08-10] MEDS ORDERED: Iopamidol-370 76% 500 ML 1 ML ONE (11:03)
--- NOTE | 2019-08-10 13:49 | PDOC.HOSPP ---
- Subjective Subjective: Seen and examined. No deficits in motor strength. Able to get up to and from the restroom and walk without difficulties. He states that his speech is still not back to 100% and he is having trouble getting some words out. After further questioning patient has now given me some new information to work with. I asked him yesterday if he has been taking his Eliquis daily and he told me yes. This morning the patient remembers that he stopped his Eliquis on the of this month and was off of it for four days for an endoscopy with gastroenterology Dr. Dave. After the procedure he restarted Eliquis. I do believe that this time of being off Eliquis put him at risk for CVA that we are dealing with now. Patient states that he has had 20+ endoscopies. Patient states that he has esophageal strictures for which he gets dilation's four. Patient with colon cancer status post resection. - Objective Vital Signs & Weight: Vital Signs (12 hours) Temp Pulse Resp BP BP Pulse Ox 08/10/19 11:47 98.1 F 98 18 141/90 H 97 08/10/19 09:49 83 138/65 08/10/19 07:20 97.9 F 83 16 138/65 96 08/10/19 04:00 97.5 F L 81 16 120/74 97 Weight Weight 273 lb 4.8 oz I&O: 08/09/19 08/10/19 08/11/19 06:59 06:59 06:59 Intake Total 900 Balance 900 Result Diagrams: 08/08/19 18:30 08/08/19 18:30 Additional Labs: Accuchecks 08/10/19 08/10/19 08/10/19 11:38 10:39 06:02 POC Glucose 241 H 300 H 230 H 08/09/19 08/09/19 22:09 16:07 POC Glucose 188 H 200 H Radiology Reviewed by me: Yes Hospitalist ROS - Review of Systems All other systems reviewed; all pertinent +/- noted in HPI/Subj - Medication Medications: Active Medications Generic Name Dose Route Start Last Admin Trade Name Freq PRN Reason Stop Dose Admin Hydrocodone Bitart/Acetaminophen 1 tab 08/09/19 07:16 08/09/19 09:28 [place] 5/325 PO 1 tab Q4H PRN Administration Moderate to Severe Pain (6-10) Apixaban 5 mg 08/09/19 09:00 08/10/19 09:49 Eliquis PO 5 mg BID NIDHI Administration Atorvastatin Calcium 40 mg 08/09/19 21:00 08/09/19 21:03 Lipitor PO 40 mg HS NIDHI Administration Insulin Human Lispro 0 units 08/09/19 07:22 08/10/19 11:14 Humalog SC 6 unit .MODERATE SLIDING SC PRN Administration Moderate Correctional Scale Lisinopril 5 mg 08/09/19 09:00 08/10/19 09:49 Zestril PO 5 mg DAILY NIDHI Administration Pantoprazole Sodium 40 mg 08/09/19 09:00 08/10/19 09:50 Protonix PO 40 mg BID NIDHI Administration Sodium Chloride 10 ml 08/09/19 09:00 08/10/19 09:50 Flush - Normal Saline IVF 10 ml Q12HR NIDHI Administration Tamsulosin HCl 0.4 mg 08/09/19 21:00 08/09/19 21:03 Flomax PO 0.4 mg QPM NIDHI Administration - Exam General Appearance: NAD, awake alert Eye: anicteric sclera ENT: normocephalic atraumatic, moist mucosa Neck: supple, symmetric, no lymphadenopathy Heart: no murmur, no gallops, no rubs, irregular Respiratory: CTAB, no wheezes, no rales, no ronchi, normal chest expansion Gastrointestinal: soft, non-tender, normal bowel sounds, no guarding, no rigidity Extremities: no edema Skin: no lesions, no rashes Neurological: cranial nerve grossly intact, no focal deficits Musculoskeletal: generalized weakness Psychiatric: normal affect, normal behavior, A&O x 3 Hosp A/P (1) Acute CVA (cerebrovascular accident) Code(s): I63.9 - CEREBRAL INFARCTION, UNSPECIFIED Status: Acute (2) Atrial fibrillation Code(s): I48.91 - UNSPECIFIED ATRIAL FIBRILLATION Status: Acute (3) DM (diabetes mellitus) Code(s): E11.9 - TYPE 2 DIABETES MELLITUS WITHOUT COMPLICATIONS Status: Acute (4) HTN (hypertension) Code(s): I10 - ESSENTIAL (PRIMARY) HYPERTENSION Status: Acute (5) HLD (hyperlipidemia) Code(s): E78.5 - HYPERLIPIDEMIA, UNSPECIFIED Status: Acute (6) GERD (gastroesophageal reflux disease) Code(s): K21.9 - GASTRO-ESOPHAGEAL REFLUX DISEASE WITHOUT ESOPHAGITIS Status: Acute (7) Altered mental status Code(s): R41.82 - ALTERED MENTAL STATUS, UNSPECIFIED Status: Acute (8) Dysarthria Code(s): R47.1 - DYSARTHRIA AND ANARTHRIA Status: Acute - Plan Plan Medical unit with telemetry - stroke unit cardiology consultation, recommendations appreciated neurology consultation, recommendations appreciated patient admits that he went off Eliquis recently this month for endoscopy and was just recently restarted on it, now with acute CVA CTA head and neck MRI of the brain noted for acute CVA carotid ultrasound - no hemodynamically significant stenosis echocardiogram pending continue rate control strategy for atrial fibrillation anticoagulation with Eliquis to be continued stroke regimen: -aspirin -statin -EDUIN inhibitor -Eliquis continue other home medications as able PT/OT evaluation and treatment speech therapy evaluation and treatment G.I. prophylaxis DVT prophylaxis Eliquis
--- NOTE | 2019-08-10 14:15 | CT ---
Exam: CTA neck with contrast CTA head without and with contrast HISTORY: Stroke and altered mental status COMPARISON: MRI brain 08/09/2019 TECHNIQUE: 1. Multiple contiguous axial images were obtained and a CTA of the neck with contrast. 3-D sagittal a nd coronal MIP reformats were performed. 2. Multiple contiguous axial images were obtained and a CTA of the head without and with contrast. 3- D sagittal and coronal MIP reformats were performed. FINDINGS: CTA NECK: Aortic arch: Normal origin of the carotid arteries from the arch. No significant atherosclerotic dise ase of the subclavian arteries. Right common carotid artery: No significant atherosclerotic disease or narrowing Left common carotid artery: No significant atherosclerotic disease or narrowing Right internal carotid artery: Minimal atherosclerotic calcifications. No significant atherosclerotic disease or narrowing per NASCET criteria Right external carotid artery: No significant atherosclerotic disease or narrowing Left internal carotid artery: Mild atherosclerotic calcifications. No significant atherosclerotic dis ease or narrowing per NASCET criteria Left external carotid artery: No significant atherosclerotic disease or narrowing Right cervical vertebral artery: No significant atherosclerotic disease or narrowing Left cervical vertebral artery: No significant atherosclerotic disease or narrowing No cervical adenopathy. The lung apices are unremarkable. Degenerative changes are seen in the spine. CTA HEAD: There are evolving small infarctions in the left frontal and parietal lobes.. Scattered hypodensities in the subcortical and periventricular white matter are likely secondary to small vessel ischemic disease. Right intracranial internal carotid artery: Patent without narrowing or occlusion Right anterior cerebral artery: Patent without narrowing or occlusion Right middle cerebral artery: Patent without narrowing or occlusion Left intracranial internal carotid artery: Patent without narrowing or occlusion Left anterior cerebral artery: Patent without narrowing or occlusion Left middle cerebral artery: Patent without narrowing or occlusion No aneurysmal dilatation is seen in the anterior circulation. Right vertebral artery: Patent without narrowing or occlusion Left vertebral artery: Patent without narrowing or occlusion Basilar artery: Patent without narrowing or occlusion The posterior cerebral arteries and cerebellar arteries are patent without narrowing or occlusion. No aneurysmal dilatation is seen in the posterior circulation. IMPRESSION: 1. No significant CTA abnormality of the neck 2. No significant CTA abnormality of the head 3. Evolving infarctions in the left frontal and parietal lobes.
--- NOTE | 2019-08-10 16:16 | CON ---
DATE OF CONSULTATION: 08/10/2019 REASON FOR CONSULTATION: Recent stroke. HISTORY OF PRESENT ILLNESS: Mr. Soriano is a very pleasant 79-year-old gentleman whom I have seen and evaluated in the past. He has a previous history of atrial fibrillation, on anticoagulation therapy. He recently underwent a GI procedure and was off Eliquis for 4 days prior to the procedure. He underwent the procedure successfully. He states he restarted the medication one day after. He then developed difficulty with speech. MRI dated 08/09/2019 did suggest small cerebral foci, mostly small acute infarction scattered in the left cerebral hemisphere, likely embolic. PAST MEDICAL HISTORY: Diabetes mellitus, hyperlipidemia, atrial fibrillation, [place]lain esophagus, and acid reflux. MEDICATIONS: Include: 1. Glipizide. 2. Tamsulosin. 3. Pantoprazole. 4. Metformin. 5. Pravastatin. 6. Glyburide. 7. Eliquis. PAST SURGICAL HISTORY: Hernia repair and appendectomy. SOCIAL HISTORY: No current tobacco or alcohol use. ALLERGIES: AZITHROMYCIN. REVIEW OF SYSTEMS: Ten-point review of systems was reviewed as above, otherwise negative. PHYSICAL EXAMINATION: GENERAL: Patient is a pleasant male who is in no acute distress. The patient appears their stated age. VITAL SIGNS: Blood pressure 141/90, pulse 98, and temperature 98.1. NEUROLOGIC: The patient is alert and oriented x3 with no focal neurologic deficits. HEENT: Sclerae without icterus. Mouth has moist mucous membranes with normal pallor. NECK: No JVD. Carotid upstroke brisk. No bruits bilaterally. LUNGS: Clear to auscultation with unlabored respirations. BACK: No scoliosis or kyphosis. CARDIAC: Irregularly irregular. ABDOMEN: Soft, nontender, nondistended. No peritoneal signs present. No hepatosplenomegaly. No abnormal striae. EXTREMITIES: 2+ femoral and 2+ dorsalis pedis pulses. No cyanosis, clubbing, or edema. SKIN: No gross abnormalities. PERTINENT LABORATORY DATA: Hemoglobin 16.9, hematocrit 52.3. Creatinine 1.19. IMPRESSION: 1. Recent stroke. 2. Atrial fibrillation. RECOMMENDATIONS: I had a long discussion with Mr. Soriano. At this point, we would not recommend switching to a different anticoagulant. It is rare for the patient developed CVA, which should such a narrow window of no coverage. At this point, we would recommend restarting Eliquis. He states he needs frequent esophageal dilatations and may need Lovenox for bridging, although increased risk of bleeding with Lovenox for bridging or a shorter window estimated at 2 days instead of 4. Otherwise, I have no further recommendations. We will follow up with the patient as an outpatient. Job ID: [id number]
[2019-08-10] MEDS: Tamsulosin HCl 0.4 MG CAP PO SCH (22:19)
[2019-08-10] MEDS: Atorvastatin Calcium 40 MG TAB PO SCH (22:19)
[2019-08-11 04:41] VITALS: TEMP 97.5
[2019-08-11] MEDS: HumaLOG 300 UNITS/3 ML VIAL SC PRN (06:42)
[2019-08-11] MEDS: Lisinopril 5 MG TAB PO SCH (08:36)
[2019-08-11] MEDS: Apixaban 5 MG TAB PO SCH (08:37)
[2019-08-11 08:39] VITALS: BP 126/72
[2019-08-11] MEDS ORDERED: Aspirin Chewable 81 MG TAB PO SCH (09:00)
[2019-08-11 09:19] LABS: Cardiac Risk 3.4 (Less than 4.5)
--- NOTE | 2019-08-12 02:18 | DIS ---
DATE OF ADMISSION: 08/08/2019 DATE OF DISCHARGE: 08/11/2019 REASON FOR HOSPITALIZATION: Altered mental status, dysarthria, and stroke symptoms. SIGNIFICANT FINDINGS: The patient was found to have acute cerebrovascular accident as identified on MRI of the brain with left frontal and left parietal infarcts scattered in the watershed zones-please see full MRI report for details. PROCEDURES PERFORMED AND TREATMENTS RENDERED: Mr. Soriano is a very pleasant 79-year-old gentleman, who presented to [facility] on 08/09/2019, with stroke symptoms. The patient with initial confusion, sensory deficits, and dysarthria, presented to [facility] and was transferred for higher level of care. The patient's symptoms resolved, low NIH score on admission and he was determined not to be a tPA candidate by emergency department physician. By the time I evaluated the patient, his symptoms has resolved nearly and his speech was returning. I appreciated no dysarthria, though he was slow in coming up with the correct word to answer my questions. I have monitored the patient for several days in the acute care hospital and he did have a good improvement of his symptoms. On the morning of 08/11/2019, his speech was fluent and he was answering all questions appropriately. The patient is alert and oriented x3 and has good insight into his clinical condition. The patient was seen and evaluated by Neurology-please see full consultation notes and progress notes for details. The patient had all appropriate neurologic imaging as per Neurology-please see full report for details. The patient was seen and evaluated by Cardiology-please see full consultation notes for details. Medications were titrated appropriately by all specialists. Specialist recommending the patient safe for discharge on 08/11/2019. After further questioning, the patient was brought to light that he has frequent endoscopic procedures for esophageal stricture. The patient undergoes esophageal dilation by Dr. Dave and he underwent one of these procedures just a few days ago, at that time, he was off Eliquis for about four days prior to the procedure. The patient shortly after developed stroke symptoms and it is likely because he was off his Eliquis at this time. I recommended that he weigh the risks and benefits with cessation of Eliquis for endoscopy in the future with both his configuration management manager, his ux ui designer, and his primary care physician. At this point, I would say that the risks of stroke outweigh the benefits of endoscopy in this 79-year-old gentleman. The patient remains with an elevated BMI of 34, he is not having any malnutrition or unintentional weight loss. I would recommend that he further discuss all of these findings with his primary care physician and specialist in the near future. The patient tells me he has an upcoming endoscopic intervention planned for August, I explicitly informed him he must discuss these topics prior to this procedure and he states understanding and will talk it over with all of the specialists and primary care physician to come up with a plan that everyone is comfortable with. CONDITION ON DISCHARGE: Stable. SPECIFIC INSTRUCTIONS FOR THE PATIENT/FAMILY: 1. The patient is recommended to take all medications as directed. 2. The patient is recommended to follow up with primary care physician in the next 5 to 7 days. 3. The patient is recommended to follow up with Cardiology in the next 1 to 2 weeks. 4. The patient is recommended to follow up with Gastroenterology in the next 1 to 2 weeks. 5. The patient is recommended to have a thorough conversation with all specialists and primary care physician concerning the necessity of anticoagulation versus the benefits of further endoscopy that put him at risk for stroke when he is not taking oral anticoagulation. The patient understands all of these risks and benefits prior to discharge. 6. The patient to return to acute care hospital immediately if signs or symptoms return, worsen, or any other new symptoms occur. DISCHARGE MEDICATIONS: Please see full discharge medication list for details. 1. Eliquis 5 mg one tablet p.o. b.i.d. 2. Glipizide 10 mg one tablet p.o. b.i.d. 3. Flomax 0.4 mg one tablet p.o. b.i.d. 4. Protonix 40 mg one tablet p.o. b.i.d. 5. Metformin 1000 mg one tablet p.o. b.i.d. 6. Lisinopril 5 mg one tablet p.o. daily. 7. Diltiazem 180 mg one tablet p.o. daily. 8. Atorvastatin 40 mg one tablet p.o. at bedtime. 9. Aspirin 81 mg one tablet p.o. daily. 10. Tylenol regular strength 650 mg one tablet p.o. q.4 hours p.r.n. pain or fever. Greater than 40 minutes spent coordinating care and discharge process for this patient. Job ID: [id number]
--- NOTE | 2019-08-12 22:04 | PQF ---
SAP Valve Grinder Crystal Reports Winform Viewer YOJANA PICKERING ANGE CUMMINGS [id number] [facility] [place] [id number] CLINICAL DOCUMENTATION CLARIFICATION FORM: POST DISCHARGE Addendum to original discharge summary date: ____ Late entry note date: __ DATE: 08/12/19 ATTN: Ange Cummings Please exercise your independent, professional judgment in responding to the clarification form. Clinical indicators are provided on the bottom of this form for your review Can you please further clarify the diagnosis being treated and evaluated? Please check appropriate box(s): [ ] Left posterior lobe petechial hemorrhage [ ] Insignificant MRI Brain findings [ XX ] Other diagnosis please specify Defer to Neurology - please query Neurology [ ] Unable to determine In addition, please specify: Present on Admission (POA): [ XX ] Yes [ ] No [ ] Unable to determine For continuity of documentation, please document condition throughout progress notes and discharge summary. Thank You. CLINICAL INDICATORS - SIGNS / SYMPTOMS / LABS H and P pg.1- CVA symptoms Consult Dr. Pierce pg.3- two of the acute infarctions on the left have petechial hemorrhage which wound not be visible on CT MRI Brain pg.1- a 3.5 x 1.5 cm lesion in the left posterior lobe , also with petechial hemorrhage DS pg.1- please see full MRI reports for details RISK FACTORS Acute Vascular infarction-H and P pg.1 Afib- H and P pg.2 Hypertension- H and P pg.12 hyperlipidemia- H and P pg.1 TREATMENTS: Neurology Consult- Dr. Pierce Brain MRI 08/09 CT Brain 08/09 IV fluids- MAR Aspirin 325mg PO- mAR (This form is maintained as a part of the permanent medical record) 2014 [employer]. All Rights Reserved [email or web address]
--- NOTE | 2019-08-19 18:36 | PQF ---
SAP Shoe Maker Crystal Reports Winform ViewerTAYOJANA JEREMIAHSELMA [id number] [facility] [place] [id number] CLINICAL DOCUMENTATION CLARIFICATION FORM: POST DISCHARGE Addendum to original discharge summary date: ____ Late entry note date: __ DATE: 08/19/19 ATTN: Selma Pierce Please exercise your independent, professional judgment in responding to the clarification form. Clinical indicators are provided on the bottom of this form for your review Can you please further clarify the condition being treated and evaluated based on the clinical indicators below? Please check appropriate box(s): [ ] Left posterior lobe petechial hemorrhage [ ] Insignificant MRI Donny findings [ ] Other diagnosis please specify ACUTE CVA WITH PETECHIAL HEMORRHAGE___ __ [ ] Unable to determine In addition, please specify: Present on Admission (POA): [ ] Yes [ ] No [ ] Unable to determine For continuity of documentation, please document condition throughout progress notes and discharge summary. Thank You. CLINICAL INDICATORS - SIGNS / SYMPTOMS / LABS H and P pg.1- CVA symptoms Consult Dr. Pierce pg.3- two of the acute infarctions on the left have petechial hemorrhage which wound not be visible on CT MRI Brain pg.1- a 3.5 x 1.5 cm lesion in the left posterior lobe , also with petechial hemorrhage DS pg.1- please see full MRI reports for details RISK FACTORS Acute Vascular infarction-H and P pg.1 Afib- H and P pg.2 Hypertension- H and P pg.12 hyperlipidemia- H and P pg.1 TREATMENTS: Neurology Consult- Dr. Pierce Brain MRI 08/09 CT Brain 08/09 IV fluids- MAR Aspirin 325mg PO- MAR (This form is maintained as a part of the permanent medical record) 2014 [employer]. All Rights Reserved [email or web address]
== END 2019-08-11 10:10 | disposition home or self-care (01) | DRG 64 ==
LOC: ERS 18:08 → 2SE 21:25
PROVIDERS: ADMIT Emergency Medicine; ATTEND Emergency Medicine
PROC: B020ZZZ Computerized Tomography (CT Scan) of Brain (ICD-10-PCS; principal; 2019-08-08)
PROC: B030ZZZ Magnetic Resonance Imaging (MRI) of Brain (ICD-10-PCS; 2019-08-09)
DX: I63.522 Cerebral infarction due to unspecified occlusion or stenosis of left anterior cerebral artery (principal); I61.1 Nontraumatic intracerebral hemorrhage in hemisphere, cortical; G81.94 Hemiplegia, unspecified affecting left nondominant side; I63.512 Cerebral infarction due to unspecified occlusion or stenosis of left middle cerebral artery; I63.531 Cerebral infarction due to unspecified occlusion or stenosis of right posterior cerebral artery; R47.1 Dysarthria and anarthria; I48.91 Unspecified atrial fibrillation; K22.70 Barrett's esophagus without dysplasia; E78.00 Pure hypercholesterolemia, unspecified; E11.65 Type 2 diabetes mellitus with hyperglycemia; N40.0 Benign prostatic hyperplasia without lower urinary tract symptoms; I25.10 Atherosclerotic heart disease of native coronary artery without angina pectoris; E78.5 Hyperlipidemia, unspecified; K21.9 Gastro-esophageal reflux disease without esophagitis; R29.701 NIHSS score 1; R40.2412 Glasgow coma scale score 13-15, at arrival to emergency department; Z87.891 Personal history of nicotine dependence; Z79.84 Long term (current) use of oral hypoglycemic drugs; Z79.899 Other long term (current) drug therapy; Z79.01 Long term (current) use of anticoagulants; Z88.1 Allergy status to other antibiotic agents
CPT/HCPCS: 36415; 36416; 70450; 70496; 70498; 70551; 71045; 80053; 80061; 80307; 81003; 81015; 82140; 82330; 82803; 83605; 83735; 84443; 84484; 85025; 85610; 85730; 93306; 93880; 96361; 96374; Q9967

== ENCOUNTER 2019-09-23 06:46 | Day surgery (SDC) | payer MEDICARE ==
[2019-09-20 10:32] VITALS: BMI 28.2
--- NOTE | 2019-09-23 11:01 | OP ---
DATE OF PROCEDURE: 09/23/2019 PRIMARY CARE PHYSICIAN: Benja Velázquez MD WIRE DRAWING MACHINE TENDER SURGEON: None. PROCEDURES PERFORMED: Esophagogastroduodenoscopy with esophageal dilation with balloon. INDICATIONS: 1. Dysphagia. 2. Esophageal stricture. MEDICATIONS: See Anesthesia record. FINDINGS: After discussion of the risks, benefits, and alternatives of the procedure, informed consent was obtained and witnessed. Pre-endoscopic cardiopulmonary examination was satisfactory. Time-out was performed before sedation was achieved. Sedation was achieved with Anesthesia assistance in the endoscopy unit. A Pentax adult upper endoscope was placed into the oropharynx and passed through the cricopharyngeus under direct visualization. Proximal esophageal mucosa appeared normal. There is a tight esophageal stricture from 30 to 35 cm from the incisors. The endoscope was able to pass beyond the stricture with some mucosal disruption with endoscope passage at 35 cm is the GE junction, followed by 5 cm of bland appearing Chamberlain's mucosa from 35 to 40 cm from the incisors. The endoscope was advanced beyond this area and into the stomach. Forward and retroflexed views of the entire gastric mucosa were obtained. The gastric mucosa appears normal. The endoscope was advanced through the pylorus and into the first and second portions of the duodenum, which also appeared normal. The endoscope was then withdrawn back into the esophagus. Using through the scope, balloon dilator, we serially dilated his esophageal stricture to 15, then 16.5, then 18 mm. Following dilation, the mucosa was examined. The patient had significant mucosal disruption along the entire length of the stricture, with moderate improvement in narrowing. The upper endoscope was completely withdrawn and the patient allowed to recover. The patient tolerated the procedure well. There were no immediate postprocedure complications. IMPRESSION: 1. Benign esophageal stricture from 30 to 35 cm, dilated with balloon to 15, then 16.5, then 18 mm, with good mucosal disruption. 2. 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 3. Otherwise normal esophagogastroduodenoscopy. RECOMMENDATION: 1. Continue twice daily PPI. 2. Repeat EGD with dilation in 6 to 8 weeks. 3. Resume Eliquis of prior dose tomorrow. 4. Return to the GI clinic as needed. 5. Soft diet. Job ID: [id number]
[2019-09-23] MEDS ORDERED: Lidocaine 1% PF 5 ML VIAL ONE (11:41)
[2019-09-23] MEDS ORDERED: PROPOFOL 200 MG/20 ML VIAL ONE (11:41)
== END 2019-09-23 10:00 | disposition home or self-care (01) ==
LOC: SDC 06:46
PROVIDERS: ATTEND Internal Medicine
PROC: 0D758ZZ Dilation of Esophagus, Via Natural or Artificial Opening Endoscopic (ICD-10-PCS; principal; 2019-09-23)
DX: K22.2 Esophageal obstruction (principal); K22.70 Barrett's esophagus without dysplasia; E11.9 Type 2 diabetes mellitus without complications; Z79.84 Long term (current) use of oral hypoglycemic drugs; Z79.899 Other long term (current) drug therapy; Z86.73 Personal history of transient ischemic attack (TIA), and cerebral infarction without residual deficits; Z87.891 Personal history of nicotine dependence; Z88.1 Allergy status to other antibiotic agents
CPT/HCPCS: J2001; J2704

== ENCOUNTER 2020-01-27 14:38 | Outpatient (CLI) | payer MEDICARE ==
[2020-01-27 15:48] LABS: Estimated GFR-MDRD - POC Greater than 90
--- NOTE | 2020-01-28 10:17 | CT ---
EXAM: CTA of the chest HISTORY: Atrial fibrillation. Left atrial appendage occlusive device placement. COMPARISON: CT abdomen/pelvis 11/27/2014 TECHNIQUE: Multiple contiguous axial images were obtained a CTA of the chest with contrast per left a trial appendage protocol. Sagittal and coronal 3-D MIP reformats reformats were performed. FINDINGS: HEART: Normal in size without focal cardiac abnormality. There is adequate opacification of the left atrium. An occlusive device is seen within the left atria l appendage. Contrast is seen behind the occlusive device in the atrial appendage. MEDIASTINUM: No hilar or mediastinal lymphadenopathy. LUNGS: No focal infiltrates or masses. PLEURAL SPACE: No pleural effusion or pneumothorax. CHEST WALL SOFT TISSUES: Unremarkable VISUALIZED OSSEOUS STRUCTURES: Degenerative changes in the spine. VISUALIZED SUBDIAPHRAGMATIC STRUCTURES: 3.4 cm left renal cyst. Multiple granulomas in the spleen and liver. 2.1 cm cyst in the tail of the pancreas. This appears to have enlarged compared to the prior examination. No obvious enhancement of the wall of the cyst is seen. IMPRESSION: 1. Incomplete occlusion of left atrial appendage by occlusive device. 2. Enlargement of cyst in the tail the pancreas.
== END 2020-01-27 14:39 | disposition home or self-care (01) ==
LOC: BICCT 14:38
PROVIDERS: ATTEND Internal Medicine Cardiovascular Disease
DX: I48.91 Unspecified atrial fibrillation (principal); R06.02 Shortness of breath; K86.2 Cyst of pancreas; T82.898A Other specified complication of vascular prosthetic devices, implants and grafts, initial encounter
CPT/HCPCS: 71275; 82565

== ENCOUNTER 2020-05-27 15:04 | Outpatient (CLI) | payer MEDICARE ==
[~2020-05-27 15:04] MED LIST: Iopamidol 370 76% 100 ML VIAL ONE
--- NOTE | 2020-05-27 16:18 | CT ---
CTA Angio Chest W WO Con History: Recent watchman device placement. Evaluate for thrombus. Comparison: CT chest January 27, 2020 Findings: CT angiogram of the chest performed after the intravenous administration of contrast. 3-D r endering provided. Mild scarring within the posterior segments upper lobes bilaterally. No pneumothorax. No effusion. There is a nodule within the right lower lobe measuring 6 to 7 mm, relatively unchanged dating back t o 2014. No new suspicious pulmonary nodule. Multiple calcified granulomas. The thoracic spine is intact. Bridging anterior osteophytes of the thoracic spine with relatively goyo ntained disc spaces. Sternum is intact. Manubrium is intact. Old right posterior fourth and fifth rib fractures. Multiple calcified granulomas of the spleen. Pancreatic tail hypodensity measures 1.6 cm, relatively similar to the comparison exam. 2015 is hypodensity only measured approximately 8-9 mm. Hypodensity posterior cortex superior pole left kidney is similar. No pneumothorax. Watchman device is in situ with contrast extending beyond the watchman device into t he left atrial appendage. Small antonio hepatis lymph nodes have not grown since 2014. Impression: 1. No significant thrombus formation within the left atrial appendage beyond the watchman device. 2. Similar appearance of the pancreatic tail hypodensity from the most recent examination although th ere has been growth since 2014. A follow-up pancreatic protocol MRI in 12 months recommended.
== END 2020-05-27 15:05 | disposition home or self-care (01) ==
LOC: BICCT 15:04
PROVIDERS: ATTEND Internal Medicine Cardiovascular Disease
DX: I48.91 Unspecified atrial fibrillation (principal); R06.02 Shortness of breath; K86.89 Other specified diseases of pancreas
CPT/HCPCS: 71275; 82565; Q9967

== ENCOUNTER 2021-06-30 15:53 | Inpatient (IN) | payer MEDICARE ==
[~2021-06-30 15:53] MED LIST changes: -Iopamidol 370 76% 100 ML VIAL ONE; +Iopamidol-370 76% 500 ML 1 ML ONE
[2021-06-30 18:28] LABS: #Lymphocytes 0.8 thou/uL (1.20-3.40); #Monocytes 0.5 thou/uL (0.11-0.59); %Eosinophils 0.1 % (0.0-10.0); %Lymphocytes 7.4 % (21.0-51.0); %Monocytes 5.2 % (0.0-10.0); %Neutrophils 87.4 % (42.0-75.0); Hemoglobin 13.7 g/dL (14.0-18.0); Mean Corpuscular HGB CONC 32.6 g/dL (32.0-36.0); Mean Corpuscular Volume 88.8 fL (78.0-98.0); Mean Platelet Volume 7.4 fL (7.4-10.4); Platelet Count 196 thou/uL (130-400); RBC Distribution Width 13.7 % (11.5-14.5); Red Blood Cell (RBC) Count 4.74 mill/uL (4.70-6.10); White Blood Cell (WBC) Count 10.3 thou/uL (4.8-10.8)
[2021-06-30 18:52] LABS: ALT (SGPT) 24 U/L (8-55); AST (SGOT) 27 U/L (5-34); Albumin 3.5 g/dL (3.4-4.8); Alkaline Phosphatase 65 U/L (40-110); Anion Gap 12 mmol/L (10-20); BUN (Urea Nitrogen) 11 mg/dL (8.4-25.7); Bilirubin, Total 0.7 mg/dL (0.2-1.2); Calc. Creatinine Clearance 0 mL/min (70-130); Calcium 8.6 mg/dL (7.8-10.44); Carbon Dioxide 24 mmol/L (23-31); Chloride 100 mmol/L (98-107); Globulin 3.1 g/dL (2.4-3.5); Glucose 174 mg/dL (83-110); Lipase 18 U/L (8-78); Potassium 4.3 mmol/L (3.5-5.1); Protein, Total 6.6 g/dL (5.8-8.1); Sodium 132 mmol/L (136-145)
[2021-06-30 19:10] LABS: CKMB 3.2 ng/mL (0-6.6)
[2021-06-30] MEDS ORDERED: Diltiazem 125 MG/25 ML ONE (19:48)
[2021-06-30] MEDS ORDERED: Aspirin Chewable 81 MG TAB ONE (19:48)
[2021-07-01 01:36] LABS: Troponin I 0.027 ng/mL (< 0.028)
[2021-07-01] MEDS ORDERED: Ondansetron PF 4 MG/2 ML Vial IVP PRN (03:00)
[2021-07-01] MEDS ORDERED: Dextrose 5% in Water 1,000 ML IV PRN (03:03)
[2021-07-01] MEDS ORDERED: HumaLOG 300 UNITS/3 ML VIAL SC PRN (03:03)
[2021-07-01] MEDS ORDERED: Dextrose 50% Abboject 50 ML SYRINGE SLOW IVP PRN (03:03)
[2021-07-01] MEDS ORDERED: Sodium Chloride 0.9% 1,000 ML IV SCH ×2 (03:30→04:01)
[2021-07-01 05:19] LABS: #Eosinphils 0.1 thou/uL (0.0-0.7); #Lymphocytes 0.8 thou/uL (1.20-3.40); #Monocytes 0.5 thou/uL (0.11-0.59); #Neutrophils 5.2 thou/uL (1.40-6.50); %Basophils 0.1 % (0.0-1.0); %Lymphocytes 12.8 % (21.0-51.0); %Neutrophils 79.1 % (42.0-75.0); Hemoglobin 13.4 g/dL (14.0-18.0); Mean Corpuscular HGB CONC 33.2 g/dL (32.0-36.0); Mean Corpuscular Hemoglobin 29.7 pg (27.0-31.0); Mean Corpuscular Volume 89.4 fL (78.0-98.0); Mean Platelet Volume 7.1 fL (7.4-10.4); Platelet Count 175 thou/uL (130-400); RBC Distribution Width 13.7 % (11.5-14.5); White Blood Cell (WBC) Count 6.5 thou/uL (4.8-10.8)
[2021-07-01 05:40] LABS: Anion Gap 10 mmol/L (10-20); BUN (Urea Nitrogen) 12 mg/dL (8.4-25.7); Calc. Creatinine Clearance 0 mL/min (70-130); Calcium 8.4 mg/dL (7.8-10.44); Carbon Dioxide 26 mmol/L (23-31); Chloride 101 mmol/L (98-107); Glucose 179 mg/dL (83-110); Potassium 4.1 mmol/L (3.5-5.1); Sodium 133 mmol/L (136-145)
[2021-07-01 14:13] VITALS: BMI 33.4
[2021-07-01] MEDS: HumaLOG 300 UNITS/3 ML VIAL SC PRN (17:09)
[2021-07-01] MEDS ORDERED: Diltiazem 125 MG in Sodium Chloride 0.9% 100 ML IVPB SCH ×2 (17:15→18:11)
[2021-07-01] MEDS: Tamsulosin HCl 0.4 MG CAP PO SCH (21:46)
[2021-07-02 04:58] LABS: #Eosinphils 0.1 thou/uL (0.0-0.7); #Monocytes 0.6 thou/uL (0.11-0.59); %Basophils 0.5 % (0.0-1.0); %Eosinophils 1.9 % (0.0-10.0); %Lymphocytes 15.2 % (21.0-51.0); %Monocytes 8.9 % (0.0-10.0); %Neutrophils 73.6 % (42.0-75.0); Hemoglobin 13.2 g/dL (14.0-18.0); Mean Corpuscular HGB CONC 32.1 g/dL (32.0-36.0); Mean Corpuscular Hemoglobin 28.7 pg (27.0-31.0); Mean Corpuscular Volume 89.4 fL (78.0-98.0); Mean Platelet Volume 7.3 fL (7.4-10.4); Platelet Count 184 thou/uL (130-400); RBC Distribution Width 13.6 % (11.5-14.5); Red Blood Cell (RBC) Count 4.58 mill/uL (4.70-6.10); White Blood Cell (WBC) Count 6.8 thou/uL (4.8-10.8)
[2021-07-02 06:22] LABS: Chloride 100 mmol/L (98-107); Potassium 4.5 mmol/L (3.5-5.1); Sodium 134 mmol/L (136-145)
[2021-07-02 06:23] LABS: Glucose 187 mg/dL (83-110)
[2021-07-02 06:24] LABS: Anion Gap 11 mmol/L (10-20); Carbon Dioxide 28 mmol/L (23-31)
[2021-07-02 06:26] LABS: Calc. Creatinine Clearance 112 mL/min (70-130)
[2021-07-02 06:27] LABS: BUN (Urea Nitrogen) 11 mg/dL (8.4-25.7)
[2021-07-02] MEDS: HumaLOG 300 UNITS/3 ML VIAL SC PRN ×3 (06:36→17:19)
[2021-07-02] MEDS: Acetaminophen 325 MG TAB PO PRN ×2 (09:13→21:27)
[2021-07-02] MEDS: Aspirin Chewable 81 MG TAB PO SCH (09:13)
[2021-07-02] MEDS: Digoxin 0.25 MG TAB PO SCH ×3 (09:44→21:18)
[2021-07-02] MEDS: Tamsulosin HCl 0.4 MG CAP PO SCH (21:18)
[2021-07-03 03:56] VITALS: TEMP 97.6
[2021-07-03 04:40] LABS: #Eosinphils 0.2 thou/uL (0.0-0.7); #Lymphocytes 1.3 thou/uL (1.20-3.40); #Monocytes 0.4 thou/uL (0.11-0.59); #Neutrophils 2.5 thou/uL (1.40-6.50); %Basophils 0.2 % (0.0-1.0); %Eosinophils 3.6 % (0.0-10.0); %Lymphocytes 30.3 % (21.0-51.0); %Monocytes 8.4 % (0.0-10.0); %Neutrophils 57.5 % (42.0-75.0); Hemoglobin 13.1 g/dL (14.0-18.0); Mean Corpuscular HGB CONC 32.7 g/dL (32.0-36.0); Mean Corpuscular Hemoglobin 29.3 pg (27.0-31.0); Mean Corpuscular Volume 89.7 fL (78.0-98.0); Mean Platelet Volume 7.3 fL (7.4-10.4); Platelet Count 198 thou/uL (130-400); RBC Distribution Width 13.4 % (11.5-14.5); Red Blood Cell (RBC) Count 4.46 mill/uL (4.70-6.10); White Blood Cell (WBC) Count 4.4 thou/uL (4.8-10.8)
[2021-07-03 05:01] LABS: Anion Gap 11 mmol/L (10-20); BUN (Urea Nitrogen) 12 mg/dL (8.4-25.7); Calc. Creatinine Clearance 109 mL/min (70-130); Carbon Dioxide 27 mmol/L (23-31); Chloride 102 mmol/L (98-107); Glucose 201 mg/dL (83-110); Potassium 4.1 mmol/L (3.5-5.1); Sodium 136 mmol/L (136-145)
[2021-07-03] MEDS: Digoxin 0.25 MG TAB PO SCH (06:50)
[2021-07-03] MEDS: HumaLOG 300 UNITS/3 ML VIAL SC PRN (07:31)
[2021-07-03 08:00] VITALS: BP 139/66
[2021-07-03] MEDS ORDERED: Digoxin 0.125 MG TAB PO SCH (09:00)
[2021-07-03] MEDS: Aspirin Chewable 81 MG TAB PO SCH (09:12)
[2021-07-04] MEDS ORDERED: FLU VACC QS2021-22(65YR UP)/PF 240 MCG/0.7 ML SYRINGE IM ONE (14:45)
== END 2021-07-03 11:00 | disposition home or self-care (01) | DRG 687 ==
LOC: ERS 15:53 → 2NO 20:05 → ERHOLD 20:20 → 2NO 07-01 13:34
PROVIDERS: ADMIT Internal Medicine; ATTEND Nurse Practitioner Family
DX: D49.4 Neoplasm of unspecified behavior of bladder (principal); K86.2 Cyst of pancreas; Z66 Do not resuscitate; A08.4 Viral intestinal infection, unspecified; E11.9 Type 2 diabetes mellitus without complications; E78.5 Hyperlipidemia, unspecified; E78.00 Pure hypercholesterolemia, unspecified; Z96.651 Presence of right artificial knee joint; D72.829 Elevated white blood cell count, unspecified; K21.9 Gastro-esophageal reflux disease without esophagitis; I10 Essential (primary) hypertension; I48.0 Paroxysmal atrial fibrillation; Z85.038 Personal history of other malignant neoplasm of large intestine; Z79.84 Long term (current) use of oral hypoglycemic drugs; Z79.82 Long term (current) use of aspirin; Z88.1 Allergy status to other antibiotic agents; Z90.49 Acquired absence of other specified parts of digestive tract; Z79.899 Other long term (current) drug therapy; Z79.01 Long term (current) use of anticoagulants; Z91.14 Patient's other noncompliance with medication regimen
CPT/HCPCS: 36415; 36416; 74177; 80048; 82553; 83690; 84484; 85025; 93005; 96374; J1815; J3490; J7050; Q9967

== ENCOUNTER 2021-08-06 05:56 | Day surgery (SDC) | payer MEDICARE ==
[2021-07-29 11:58] VITALS: BMI 29.9
[2021-08-06] MEDS ORDERED: Fentanyl 100 MCG/2 ML VIAL ONE (06:33)
[2021-08-06] MEDS ORDERED: Famotidine/PF 20 mg/2ml Vial ONE (06:33)
[2021-08-06] MEDS ORDERED: Iothalamate Meglumine 60% 50 ML VIAL FS ONE (06:57)
[2021-08-06] MEDS ORDERED: SUGAMMADEX SODIUM 200 MG/2 ML VIAL ONE (07:20)
[2021-08-06] MEDS ORDERED: Levofloxacin 500 mg/D5W 100 ml Premix Bag ONE (07:24)
[2021-08-06] MEDS ORDERED: Rocuronium Bromide 10 MG/ML (10ML VIAL) ONE (07:32)
[2021-08-06] MEDS ORDERED: PHENYLEPHRINE-NS 100 MCG/ML 10 ML SYRINGE ONE (07:32)
[2021-08-06] MEDS ORDERED: PROPOFOL 200 MG/20 ML VIAL ONE (07:32)
[2021-08-06] MEDS ORDERED: Lidocaine 1% PF 5 ML VIAL ONE (07:32)
[2021-08-06] MEDS ORDERED: Ondansetron PF 4 MG/2 ML Vial ONE (07:32)
[2021-08-06] MEDS ORDERED: Metoclopramide HCl 10 MG/2 ML VIAL ONE (07:32)
[2021-08-06] MEDS ORDERED: Metoprolol Tartrate 5 MG/5 ML VIAL ONE (07:32)
[2021-08-06] MEDS ORDERED: Ketorolac Tromethamine 30 MG/ML VIAL ONE (08:37)
[2021-08-06] MEDS ORDERED: Phenazopyridine HCl 100 MG TAB ONE (08:37)
[2021-08-06] MEDS ORDERED: Oxybutynin 5 MG TAB ONE (08:37)
== END 2021-08-06 10:15 | disposition home or self-care (01) ==
LOC: SDC 05:56
PROVIDERS: ATTEND Urology
PROC: 0TBB8ZX Excision of Bladder, Via Natural or Artificial Opening Endoscopic, Diagnostic (ICD-10-PCS; principal; 2021-08-06)
DX: C67.2 Malignant neoplasm of lateral wall of bladder (principal); C67.4 Malignant neoplasm of posterior wall of bladder; E11.9 Type 2 diabetes mellitus without complications; I48.91 Unspecified atrial fibrillation; M19.90 Unspecified osteoarthritis, unspecified site; E78.5 Hyperlipidemia, unspecified; K21.9 Gastro-esophageal reflux disease without esophagitis; Z85.038 Personal history of other malignant neoplasm of large intestine; Z87.891 Personal history of nicotine dependence; Z79.82 Long term (current) use of aspirin; Z79.84 Long term (current) use of oral hypoglycemic drugs; Z79.899 Other long term (current) drug therapy; Z88.1 Allergy status to other antibiotic agents
CPT/HCPCS: 52240; 74420; 93005; Q9961; 88305; 93010; J1885; J1956; J2405; J2704; J2765; J3010; S0028

== ENCOUNTER 2021-09-17 15:29 | Outpatient (CLI) | payer MEDICARE ==
[2021-08-03 13:00] LABS: Hemoglobin 14.2 g/dL (13.5-17.5); Mean Corpuscular HGB CONC 32.1 g/dL (32.0-36.0); Mean Corpuscular Hemoglobin 28.5 pg (27.0-33.0); Mean Corpuscular Volume 88.6 fl (81.2-95.1); Mean Platelet Volume 10.4 fl (7.4-10.4); Platelet Count 285 10x3/uL (150-450); RBC Distribution Width 15.2 % (11.5-14.5); Red Blood Cell (RBC) Count 4.99 10x6/uL (4.32-5.72); White Blood Cell (WBC) Count 12.1 10x3/uL (3.5-10.5)
[2021-08-03 13:06] LABS: Anion Gap 15 mmol/L (10-20); BUN (Urea Nitrogen) 16 mg/dL (8.4-25.7); Calc. Creatinine Clearance 0 mL/min (70-130); Calcium 9.3 mg/dL (7.8-10.44); Carbon Dioxide 24 mmol/L (23-31); Chloride 103 mmol/L (98-107); Glucose 147 mg/dL (83-110); Potassium 4.7 mmol/L (3.5-5.1); Sodium 137 mmol/L (136-145)
[2021-08-03 13:48] LABS: Bilirubin Neg (Negative); Blood, Urine 250 (Negative); Clarity Cloudy (Clear); Glucose, Urine (Dipstick) >=1000 mg/dL (Negative); Ketone, Urine Negative (Negative); Leukocyte 500 (Negative); Nitrite Negative (Negative); Protein, Urine (Dipstick) 30 mg/dl (Neg-Trace); Urobilinogen Normal mg/dL (Less than 2)
[2021-08-03 14:09] LABS: RBC/HPF Greater than 50 HPF (0-3); WBC/HPF 21-50 HPF (0-3)
[2021-08-03 14:10] LABS: Bacteria/HPF 3+ HPF (None Seen); Squamous Epithelial 0-3 HPF (0-3)
[2021-08-03 20:06] LABS: SARS-CoV-2 PCR by NAA Not Detected (NotDetected)
[2021-09-17 16:04] LABS: Hemoglobin 14.2 g/dL (13.5-17.5); Mean Corpuscular HGB CONC 32.3 g/dL (32.0-36.0); Mean Corpuscular Volume 89.6 fl (81.2-95.1); Mean Platelet Volume 9.5 fl (7.4-10.4); Platelet Count 284 10x3/uL (150-450); RBC Distribution Width 14.6 % (11.5-14.5); White Blood Cell (WBC) Count 8.7 10x3/uL (3.5-10.5)
[2021-09-17 16:29] LABS: INR-International Normal Ratio 0.9; PTT 22.5 sec (22.0-33.0); Prothrombin Time 10.3 sec (9.5-12.1)
[2021-09-17 16:33] LABS: Anion Gap 16 mmol/L (10-20); BUN (Urea Nitrogen) 11 mg/dL (8.4-25.7); Calc. Creatinine Clearance 0 mL/min (70-130); Carbon Dioxide 23 mmol/L (23-31); Chloride 102 mmol/L (98-107); Glucose 194 mg/dL (83-110); Potassium 4.3 mmol/L (3.5-5.1); Sodium 137 mmol/L (136-145)
[2021-09-18 18:18] LABS: SARS-CoV-2 PCR by NAA Not Detected (NotDetected)
== END 2021-09-17 15:30 | disposition home or self-care (01) ==
LOC: LABBT 15:29
PROVIDERS: ATTEND Internal Medicine Cardiovascular Disease
DX: Z01.818 Encounter for other preprocedural examination (principal); I48.11 Longstanding persistent atrial fibrillation; Z20.822 Contact with and (suspected) exposure to COVID-19
CPT/HCPCS: 80048 ×2; 81001; 85027 ×2; 85610; 85730; 87077; 87086; 87186; 93005; U0003 ×2; U0005 ×2; 93010